=== PATIENT | male | born 1960 | race Caucasian/White ===

== ENCOUNTER → 2017-04-18 | Outpatient (CLI) | payer MEDICAID ==
[~2017-04-18] MED LIST: ALBU18HF INH; AMLO1CAP14 PO; AMLO5TAB2 PO; ATOR40TA78 PO; BENA20TA2 PO; BUSP30TA PO; CARV-39 PO; DOCU-131 PO; HYDR-3240 PO; PARO10TA3 PO; TIOT18CA INH; WILL BRING LIST
== END | disposition home or self-care (01) ==
LOC: CFH 08:53
PROVIDERS: ATTEND Urology
DX: J84.10 Pulmonary fibrosis, unspecified (principal); Z98.890 Other specified postprocedural states
CPT/HCPCS: 71046

== ENCOUNTER → 2018-05-14 | Outpatient (CLI) | payer MEDICAID ==
[~2018-05-14] MED LIST changes: +AMLO-150 PO; -AMLO5TAB2 PO; -BENA20TA2 PO; +BENA20TA54 PO
== END | disposition home or self-care (01) ==
LOC: RAD 12:17
PROVIDERS: ATTEND Physician Assistant
DX: R07.89 Other chest pain (principal); C64.9 Malignant neoplasm of unspecified kidney, except renal pelvis
CPT/HCPCS: 71046

== ENCOUNTER → 2018-07-17 | Outpatient (CLI) | payer MEDICAID ==
[~2018-07-17] MED LIST changes: +OMNIPAQUE 350 MG/ML, 100ML BOTTLE ONE
== END | disposition home or self-care (01) ==
LOC: CFH 07:59
PROVIDERS: ATTEND Nurse Practitioner Family
DX: K76.89 Other specified diseases of liver (principal); M51.37 Other intervertebral disc degeneration, lumbosacral region
CPT/HCPCS: 74177; Q9967

== ENCOUNTER 2019-03-03 09:33 | Outpatient (CLI) | payer MEDICAID ==
[~2019-03-03 09:33] MED LIST changes: -AMLO1CAP14 PO; +AMLO1CAP53 PO; -OMNIPAQUE 350 MG/ML, 100ML BOTTLE ONE
== END 2019-03-03 23:59 | disposition home or self-care (01) ==
LOC: CVU 09:33 → RAD 23:59
PROVIDERS: ATTEND Internal Medicine Cardiovascular Disease
DX: I08.8 Other rheumatic multiple valve diseases (principal); R91.8 Other nonspecific abnormal finding of lung field; I10 Essential (primary) hypertension; J44.9 Chronic obstructive pulmonary disease, unspecified; F17.200 Nicotine dependence, unspecified, uncomplicated; J43.9 Emphysema, unspecified; J84.10 Pulmonary fibrosis, unspecified; I25.10 Atherosclerotic heart disease of native coronary artery without angina pectoris; K76.89 Other specified diseases of liver; Z85.528 Personal history of other malignant neoplasm of kidney
CPT/HCPCS: 0399T; 71250; 93306; 94060; 94618; 94726; 94729

== ENCOUNTER 2019-03-14 06:26 | Day surgery (SDC) | payer MEDICAID ==
[2019-03-11 14:15] LABS: ALANINE AMINOTRANSFERASE 49 U/L (12-78); ALBUMIN 3.7 g/dL (3.4-5.0); ANION GAP 2 mmol/L (5-15); CALCIUM 9.3 mg/dL (8.5-10.1); CHLORIDE 111 mmol/L (98-107); CREATININE 1.28 mg/dL (0.7-1.3)
[2019-03-11 14:18] LABS: ALKALINE PHOSPHATASE 142 U/L (45-117); BILIRUBIN,TOTAL 0.4 mg/dL (0.2-1.0); TOTAL PROTEIN 7.8 g/dL (6.4-8.2)
[~2019-03-14] VITALS: Ht 182.9 cm; Wt 81.8 kg
[~2019-03-14 06:26] MED LIST changes: +ALBU6.7H8 INH; +SERT50TA28 PO; +TIOT4MIS3 INH
[2019-03-14] MEDS ORDERED: LACTATED RINGERS 1,000 ML IV SCH (07:08)
[2019-03-14] MEDS ORDERED: FENTANYL PF 250 MCG/5ML ONE (08:09)
[2019-03-14] MEDS ORDERED: MIDAZOLAM 1 MG/ML, 2ML ONE (08:09)
[2019-03-14] MEDS ORDERED: hydrALAzine 20 MG/ML, 1ML ONE (09:06)
[2019-03-14] MEDS ORDERED: PROPOFOL 10 MG/ML, 20ML ONE (09:06)
[2019-03-14] MEDS ORDERED: ONDANSETRON 2MG/ML, 2ML ONE ×2 (09:14→09:30)
[2019-03-14] MEDS ORDERED: DEXAMETHASONE 4 MG/ML, 1ML ONE (09:14)
[2019-03-14] MEDS ORDERED: OXYcodone 5 MG/5 ML ORAL.SOL UDC PO PRN (09:30)
[2019-03-14] MEDS ORDERED: MEPERIDINE/PF 25MG/ML,1ML IVPush PRN (09:30)
[2019-03-14] MEDS ORDERED: ACETAMINOPHEN 325 MG TABLET PO PRN (09:30)
[2019-03-14] MEDS ORDERED: FENTANYL PF 100 MCG/2ML IV PRN (09:30)
[2019-03-14] MEDS ORDERED: HYDROmorphone 2 MG/ML, 1ML IVPush PRN (09:30)
[2019-03-14] MEDS ORDERED: hydrALAzine 20 MG/ML, 1ML IV PRN (09:30)
[2019-03-14] MEDS ORDERED: ONDANSETRON 2MG/ML, 2ML IV PRN (09:30)
[2019-03-14] MEDS ORDERED: LABETALOL 5MG/ML, 20ML IV PRN (09:30)
[2019-03-14] MEDS ORDERED: PROMETHAZINE 25 MG/ML, 1ML IV PRN (09:30)
[2019-03-14] MEDS ORDERED: NEOSTIGMINE 1 MG/ML, 10ML ONE (10:18)
[2019-03-14] MEDS ORDERED: GLYCOPYRROLATE 0.2MG/1ML, 5ML ONE (10:18)
== END 2019-03-14 13:00 | disposition home or self-care (01) ==
LOC: OUT 06:26
PROVIDERS: ATTEND Internal Medicine
DX: R91.8 Other nonspecific abnormal finding of lung field (principal); J18.9 Pneumonia, unspecified organism; J44.9 Chronic obstructive pulmonary disease, unspecified; I10 Essential (primary) hypertension; E78.5 Hyperlipidemia, unspecified; K76.89 Other specified diseases of liver; N28.9 Disorder of kidney and ureter, unspecified; F17.210 Nicotine dependence, cigarettes, uncomplicated; E66.3 Overweight; Z68.24 Body mass index [BMI] 24.0-24.9, adult; Z79.899 Other long term (current) drug therapy; Z85.528 Personal history of other malignant neoplasm of kidney; Z88.5 Allergy status to narcotic agent; Z90.5 Acquired absence of kidney; Z98.890 Other specified postprocedural states
CPT/HCPCS: 31624; 31627; 31628; 36415; 71045; 80053; 88112; 88172; 88173; 88177; 88305; 93005; J0360; J1100; J2250; J2405; J2704; J2710; J3010; J7120; 31625; 76000

== ENCOUNTER 2019-04-04 07:33 | Day surgery (SDC) | payer MEDICAID ==
[~2019-04-04] VITALS: Ht 182.9 cm; Wt 82.3 kg
[2019-04-04 08:17] VITALS: BP 105/63
[2019-04-04] MEDS ORDERED: SODIUM CHLORIDE 0.9% 1,000 ML IV SCH (08:30)
[2019-04-04] MEDS ORDERED: MIDAZOLAM 1 MG/ML, 5ML ONE (09:58)
[2019-04-04] MEDS ORDERED: FENTANYL PF 100 MCG/2ML ONE (09:58)
[2019-04-04] MEDS ORDERED: FLUMAZENIL 0.1 MG/1 ML, 5ML ONE (09:58)
[2019-04-04] MEDS ORDERED: NALOXONE 1 MG/ML, 2ML ONE (09:59)
== END 2019-04-04 12:30 | disposition home or self-care (01) ==
LOC: RAD 07:33 → EDSTATUS 09:30 → OUT 12:30
PROVIDERS: ATTEND Internal Medicine
DX: R91.8 Other nonspecific abnormal finding of lung field (principal); Z53.9 Procedure and treatment not carried out, unspecified reason; F17.200 Nicotine dependence, unspecified, uncomplicated; I10 Essential (primary) hypertension; F41.9 Anxiety disorder, unspecified; J44.9 Chronic obstructive pulmonary disease, unspecified; Z88.6 Allergy status to analgesic agent; Z88.5 Allergy status to narcotic agent; Z85.528 Personal history of other malignant neoplasm of kidney
CPT/HCPCS: 71250; 77012; 99156; 99157; J2250; J3010; J7030; J2310

== ENCOUNTER 2019-09-02 12:15 | Outpatient (CLI) | payer MEDICAID ==
[2019-09-02] MEDS ORDERED: REGADENOSON 0.4 MG/5 ML SYRINGE ONE (13:39)
== END 2019-09-02 23:59 | disposition home or self-care (01) ==
LOC: CFH 12:15
PROVIDERS: ATTEND Internal Medicine
DX: R91.8 Other nonspecific abnormal finding of lung field (principal)
CPT/HCPCS: 71250; 78452; 93017; A9502; J2785

== ENCOUNTER → 2020-03-08 | Outpatient (CLI) | payer MEDICAID | END | disposition home or self-care (01) | LOC: CFH 10:34 | PROVIDERS: ATTEND Internal Medicine | DX: I77.810 Thoracic aortic ectasia (principal); J47.9 Bronchiectasis, uncomplicated; R91.8 Other nonspecific abnormal finding of lung field; J98.4 Other disorders of lung; J43.9 Emphysema, unspecified; I25.10 Atherosclerotic heart disease of native coronary artery without angina pectoris; J84.10 Pulmonary fibrosis, unspecified | CPT/HCPCS: 71250 ==

== ENCOUNTER → 2020-08-24 | Outpatient (CLI) | payer MEDICAID ==
[~2020-08-24] MED LIST changes: +HYDR-2214 PO; -HYDR-3240 PO
== END | disposition home or self-care (01) ==
LOC: CFH 12:07
PROVIDERS: ATTEND Internal Medicine
DX: R91.1 Solitary pulmonary nodule (principal); K76.89 Other specified diseases of liver; J43.9 Emphysema, unspecified; R91.8 Other nonspecific abnormal finding of lung field; J98.4 Other disorders of lung
CPT/HCPCS: 71250

== ENCOUNTER 2020-12-13 11:00 | Day surgery (SDC) | payer MEDICAID ==
[~2020-12-13] VITALS: Ht 182.9 cm; Wt 84.6 kg
[2020-12-13 11:46] VITALS: BP 148/80
[2020-12-13] MEDS ORDERED: EZET10TA70 PO (11:46)
[2020-12-13] MEDS ORDERED: UMEC1DIS INH (11:46)
[2020-12-13] MEDS ORDERED: CARV25TA12 PO (11:46)
[2020-12-13] MEDS ORDERED: ATOR40TA78 PO (11:46)
[2020-12-13] MEDS ORDERED: BENA20TA54 PO (11:46)
[2020-12-13] MEDS ORDERED: ASPI-1026 PO (11:46)
[2020-12-13] MEDS ORDERED: SERT50TA28 PO (11:46)
[2020-12-13] MEDS ORDERED: PROVENTIL INH (11:46)
[2020-12-13] MEDS ORDERED: AMLO-150 PO (11:46)
[2020-12-13] MEDS ORDERED: SODIUM CHLORIDE 0.9% 1,000 ML IV SCH (12:00)
[2020-12-13] MEDS ORDERED: NALOXONE 1 MG/ML, 2ML ONE (13:08)
[2020-12-13] MEDS ORDERED: FLUMAZENIL 0.1 MG/1 ML, 5ML ONE (13:08)
[2020-12-13] MEDS ORDERED: MIDAZOLAM 1 MG/ML, 5ML ONE (13:08)
[2020-12-13] MEDS ORDERED: FENTANYL PF 100 MCG/2ML ONE (13:08)
== END 2020-12-13 16:15 | disposition home or self-care (01) ==
LOC: MERGE 11:00 → OUT 11:00
PROVIDERS: ATTEND Thoracic Surgery (Cardiothoracic Vascular Surgery)
DX: R41.3 Other amnesia (principal); C78.01 Secondary malignant neoplasm of right lung; I10 Essential (primary) hypertension; J44.9 Chronic obstructive pulmonary disease, unspecified; E78.00 Pure hypercholesterolemia, unspecified; F41.9 Anxiety disorder, unspecified; F17.210 Nicotine dependence, cigarettes, uncomplicated; Z79.899 Other long term (current) drug therapy; Z85.528 Personal history of other malignant neoplasm of kidney; Z88.5 Allergy status to narcotic agent; Z88.8 Allergy status to other drugs, medicaments and biological substances; Z90.5 Acquired absence of kidney; Z83.3 Family history of diabetes mellitus
CPT/HCPCS: 32408; 71045; 88305; 88333; 88334; 88341; 88342; 99156; 99157; J2250; J3010; J7030; 77012; J2310